=== PATIENT | male | born 1965 | race Caucasian/White ===

== ENCOUNTER 2021-03-06 07:16 | Day surgery (SDC) | payer MEDICARE, BC ==
[2021-02-28 16:26] LABS: BASOPHILS # (AUTO) 0.1 X10'3 (0-0.2); PRE OP HEMOGLOBIN 15.6 g/dL (14.0-17.9)
[2021-02-28 16:27] LABS: BASOPHILS % (AUTO) 0.4 % (0-1); EOSINOPHILS # (AUTO) 0.2 X10'3 (0-0.9); LYMPHOCYTES # (AUTO) 3.9 X10'3 (1.1-4.8); LYMPHOCYTES % (AUTO) 26.9 % (21-51); MEAN CORPUSCULAR HEMOGLOBIN 31.4 PG (27.0-31.0); MEAN CORPUSCULAR VOLUME 89.8 FL (78-98); MEAN PLATELET VOLUME 7.5 FL (7.4-10.4); MONOCYTES # (AUTO) 1.1 X10'3 (0-0.9); MONOCYTES % (AUTO) 7.6 % (2-12); NEUTROPHILS # (AUTO) 9.3 X10'3 (1.8-7.7); NEUTROPHILS % (AUTO) 64.1 % (42-75); PRE OP HEMATOCRIT 44.7 % (42.0-52.0); PRE OP PLATELET COUNT 594 X10'3 (140-440); RED BLOOD COUNT 4.98 X10'6 (4.70-6.10); RED CELL DISTRIBUTION WIDTH 14.8 % (11.5-14.5)
[2021-02-28 16:35] LABS: PRE OP PROTIME 9.9 SECONDS (9.0-12.0)
[2021-02-28 16:43] LABS: ALBUMIN/GLOBULIN RATIO 1.1 (1.1-1.5); ALKALINE PHOSPHATASE 123 IU/L (46-116); BLOOD UREA NITROGEN 21 MG/DL (7-18); BUN/CREATININE RATIO 21.6 (5.4-32.0); CALCIUM 9.2 MG/DL (8.5-10.1); CHLORIDE 103 MMOL/L (99-107); CREATININE 0.97 MG/DL (0.60-1.10); PRE OP ANION GAP 6 (8-16); PRE OP AST 44 U/L (10-37); PRE OP BILIRUB, TOTAL 0.4 MG/DL (0.0-1.0); PRE OP GLUCOSE 98 MG/DL (70-104); PRE OP POTASSIUM 4.2 MMOL/L (3.4-5.1); PRE OP SODIUM 138 MMOL/L (135-145); TOTAL CARBON DIOXIDE 28.9 MMOL/L (24-32); TOTAL PROTEIN 7.7 G/DL (6.4-8.2); eGFR 80 ML/MIN
[2021-02-28 16:50] LABS: PRE OP ALT 182 U/L (30-65)
[~2021-03-06] VITALS: Ht 172.7 cm; Wt 85.0 kg
[2021-03-06] VITALS (9 sets, daily range): BP systolic 106–142; BP diastolic 73–83
[~2021-03-06 07:16] MED LIST: ATOR10TA70 PO; CHOL239. PO; CHOL400T57 PO; FLO0.4C PO; LOSA25TA41 PO; METH-797 PO; MULT-1180 PO; cocaine 4% topical solution 4ml bottle ONE; diazepam 5mg tablet PO ONE; famotidine 20mg tablet PO ONE; ringers solution, lacted 1,000 ML IV SCH; sevoflurane 250ml liquid IH ONE; vitamin b PO
[2021-03-06] MEDS ORDERED: mupirocin 2% ointment 22GM ONE (07:17)
[2021-03-06] MEDS ORDERED: methylPREDNISolone acetate 80mg/ml inj**IM only ONE (07:21)
[2021-03-06] MEDS ORDERED: oxymetazoline 15 ML nasal spray NS ONE (07:21)
[2021-03-06] MEDS ORDERED: LIDOcaine 1% W/epiNEPHrine 1:100,000 20ml vial ONE ×2 (07:27→07:29)
[2021-03-06] MEDS: oxymetazoline 15 ML nasal spray NS PRN ×2 (09:50→10:09)
[2021-03-06] MEDS ORDERED: HYDROcodone/acetaminophen 10/325mg tab PO ONE (10:10)
[2021-03-06] MEDS ORDERED: ringers solution, lacted 1,000 ML IV SCH (10:20)
[2021-03-06] MEDS ORDERED: labetalol 20mg/4ml (5mg/ml) syringe IV PRN (10:20)
[2021-03-06] MEDS ORDERED: morphine 4 MG/ML inj SYRINge IV PRN (10:20)
[2021-03-06] MEDS ORDERED: proCHLORperazine 10 MG/2 ml inj IV PRN (10:20)
[2021-03-06] MEDS ORDERED: acetaminophen 1,000mg/100ml IV 100 ML IV PRN (10:20)
[2021-03-06] MEDS ORDERED: hydrALAZINE 20mg/ml inj. IV PRN (10:20)
[2021-03-06] MEDS ORDERED: morphine 2 MG/ML inj. syringe IV PRN (10:20)
[2021-03-06] MEDS ORDERED: meperidine/PF 25mg/ml syringe IV PRN ×3 (10:20)
[2021-03-06] MEDS ORDERED: ondansetron/PF 4mg/2ml inj IV PRN (10:20)
[2021-03-06] MEDS ORDERED: midazolam 1 mg/ML 2ml injection ONE (10:42)
[2021-03-06] MEDS ORDERED: fentaNYL /PF 50mcg/ml 5ml ampule ONE (10:43)
[2021-03-06] MEDS ORDERED: LIDOcaine 2% (20mg/ml) 5ml vial ONE (10:56)
[2021-03-06] MEDS ORDERED: propofol inj 20 ML IV ONE (10:56)
[2021-03-06] MEDS ORDERED: dexamethasone sod phosphate 4mg/ml inj. ONE (10:56)
[2021-03-06] MEDS ORDERED: ondansetron/PF 4mg/2ml inj ONE (10:56)
--- NOTE | 2021-03-06 11:47 | NUR ---
Received from OR via [facility] , accompanied by Anesthesiologist EL and report given by Anesthesiolgist. PATIENT WITH PACKING NASAL ON FACE TAPED DOWN, VSS. DENIES PAIN. 20G PIV IN RIGHT UE. 10L MASK ON WITH 100% SATRUATIONS. Addendum: 03/06/21 at 1155 by Luc Mora RN, RN Amended: Links added.
--- NOTE | 2021-03-06 12:57 | NUR ---
ALL DISCHARGE CRITERIA HAS BEEN MET. VSS, PAIN AT A TOLERABLE LEVEL, VOIDING AND ABLE TO SAFELY AMBULATE AND TRANSFER SELF. IV TAKEN OUT WITHOUT ANY COMPLICATIONS. ALL DISCHARGE INSTRUCTIONS COVERED WITH PATIENT AND ALL QUESTIONS ANSWERED. PATIENT TAKEN OUT VIA WHEELCHAIR TO PERSONAL VEHICLE WHERE FAMILY/FRIEND DROVE PATIENT HOME. ALL INSTRUCTIONS COVERED WITH PATIENT AND MOTHER. ALL WRITTEN MATERIAL GIVEN TO PATIENT AND MOTHER. ALL QUESTIONS ANSWERED AND SUPPLIES PROVIDED. Addendum: 03/06/21 at 1305 by Luc Almaguer - TAYE KOTHARI Amended: Links added.
== END 2021-03-06 12:57 | disposition home or self-care (01) ==
LOC: PAS 07:16
PROVIDERS: ATTEND Otolaryngology
DX: J34.2 Deviated nasal septum (principal); J34.3 Hypertrophy of nasal turbinates; I10 Essential (primary) hypertension; G89.29 Other chronic pain; N40.0 Benign prostatic hyperplasia without lower urinary tract symptoms; Z87.891 Personal history of nicotine dependence; Z98.890 Other specified postprocedural states; Z90.49 Acquired absence of other specified parts of digestive tract; Z79.899 Other long term (current) drug therapy; Z79.01 Long term (current) use of anticoagulants
CPT/HCPCS: 30140; 30520; 36415; 80053; 82948; 85025; 85576; 85610; 85730; 93005; A6402; C9250; J1040; J1100; J2250; J2405; J2704; J3010; J3490; J7030; J7040; J7120; Z7506; Z7508; Z7512; 88300; A4618; A7000